=== PATIENT | male | born 1985 | race Caucasian/White ===

== ENCOUNTER → 2019-07-27 | Outpatient (CLI) | payer BC ==
--- NOTE | 2019-07-27 20:11 | CONS ---
CONSULTATION DATE OF SERVICE: 07/27/2019 33-year-old gentleman has [facility] for possible obstructive sleep apnea-hypopnea syndrome. HISTORY OF PRESENT ILLNESS/SLEEP WAKE EVALUATION: SLEEP SCHEDULE: Patient's usual sleep schedule on working days from 9 p.m. to 5 a.m. On weekends from 11 p.m. to 8:00 a.m. FALLING ASLEEP: He does have problem with falling asleep, has TV set in bedroom. DURING SLEEP: He usually sleeps in different positions. He has loud snoring and witnessed episodes of stopped breathing during sleep. He wakes up from sleep up to 3 times and has nocturia. He also grinding teeth, wakes up with dry mouth, heartburn, sweating. Positive history of sleep talking. DURING THE DAY/SLEEP WAKE EVALUATION: In the morning, patient wakes up tired, has difficulties to pay attention, falling asleep during the day, worry about his sleep, has problems with memory, concentration, irritability, depression and anxiety. [place] Sleepiness Scale increased to 11. PAST MEDICAL HISTORY: Positive for anxiety, hypothyroidism. Tonsillitis. PAST SURGICAL HISTORY: [place] tooth removed. MEDICATIONS: Levothyroxine, Escitalopram. SOCIAL HISTORY: Positive for smoking about 1 pack a day for 15 years. Alcohol consumption occasional. FAMILY HISTORY: Family history of diabetes, thyroid problems. REVIEW OF SYSTEMS: Awakenings from sleep, sleepiness during the day, loud snoring. PHYSICAL EXAM: A 33-year-old gentleman without distress. BP 161/73, HR 89, RR 16, height 6 feet 0 inches, weight 322.4, BMI 43.6, temperature 97.7, oxygen saturation at room air 97%. Oropharynx: Low position of soft palate. Mallampati III. Wide pillars. Tonsils hypertrophic, small oropharyngeal air space, restriction of nasal breathing on the left side. Wide neck 17-1/2 inches in circumference. ABDOMEN: Slightly obese. NECK: Supple, no JVD. Thyroid is not palpable. LUNGS: Clear to percussion and to auscultation. Good air exchange. No wheezing or rhonchi. HEART: S1, S2 regular. No murmurs, gallops, or rubs. ABDOMEN: Slightly obese. Soft and nontender. Bowel sounds are present. No organomegaly appreciated. EXTREMITIES: No clubbing or cyanosis. BEHAVIORAL HEALTH AIDE: Awake, alert, and oriented X3. Cranial nerves 2 to 7 intact. There is no fasciculation or atrophy. noted. No focal deficits observed. IMPRESSION: 1. Loud snoring, witnessed episodes of stopped breathing during sleep. Low position of soft palate, Mallampati 3, hypertrophy of tonsils, wide neck, sleepiness. [place] Sleepiness Scale is 11, obstructive sleep apnea-hypopnea syndrome. 2. Obesity, BMI 43.6. 3. Hypertension in the office. 4. Anxiety. 5. Hypothyroidism. 6. History of tonsillitis in the past. 7. Some slight hypertrophy of tonsils. PLAN: 1. Sleep study for evaluation of patient breathing during sleep. 2. CPAP/BiPAP titration if sleep study confirms obstructive sleep apnea-hypopnea syndrome. 3. Preferable position during sleep on the side. 4. No driving if patient feels any sleepiness. 5. I will see patient for follow up visit to explain results of testing and following plan. 6. 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 Thank you very much for referring this patient for consultation. Sincerely, Reinaldo Harrison MD, PhD, FAASM Diplomat of [employer] [employer] [facility] [place] MMODL / IJN: [id number] /
== END | disposition home or self-care (01) ==
LOC: SLEEP 16:39
PROVIDERS: ATTEND Internal Medicine
DX: R06.83 Snoring (principal); E66.9 Obesity, unspecified; Z68.41 Body mass index [BMI] 40.0-44.9, adult; F41.9 Anxiety disorder, unspecified; E03.9 Hypothyroidism, unspecified; I10 Essential (primary) hypertension; Z87.09 Personal history of other diseases of the respiratory system; J35.1 Hypertrophy of tonsils; F17.210 Nicotine dependence, cigarettes, uncomplicated; Z79.899 Other long term (current) drug therapy
CPT/HCPCS: 99211

== ENCOUNTER → 2020-01-17 | Outpatient (CLI) | payer BC ==
--- NOTE | 2020-01-17 20:42 | XR ---
EXAMINATION TYPE: XR knee complete LT DATE OF EXAM: 01/17/2020 COMPARISON: None HISTORY: Swelling x1 year TECHNIQUE: Three-view left knee FINDINGS: Mild narrowing of medial compartment joint space is present. No acute fractures or dislocat ions are evident. No joint effusion is evident. IMPRESSION: 1. Minimal OsteoArthritic degenerative type change medial right knee
== END | disposition home or self-care (01) ==
LOC: RADXRMAIN 14:41
PROVIDERS: ATTEND Family Medicine
DX: M25.562 Pain in left knee (principal); M25.862 Other specified joint disorders, left knee